=== PATIENT | female | born 1985 | race Caucasian/White ===

== ENCOUNTER 2017-08-06 21:15 | Inpatient (IN) | payer OTHER ==
[2017-08-06] MEDS ORDERED: LIDOCAINE 1% 300 MG/30 ML SDV ONE (21:35)
[2017-08-06] MEDS ORDERED: HYDROCODONE/APAP 5/325 TAB PO PRN (22:22)
[2017-08-06] MEDS ORDERED: HYDROCORTISONE 0.5% CREAM TP PRN (22:22)
[2017-08-06] MEDS ORDERED: DOCUSATE SODIUM 100 MG CAP PO PRN (22:22)
[2017-08-06] MEDS ORDERED: IBUPROFEN 600 MG TAB PO PRN (22:24)
[2017-08-06] MEDS ORDERED: LIDOCAINE 1% 300 MG/30 ML SDV SC PRN (22:24)
[2017-08-06] MEDS ORDERED: MISOPROSTOL 200 MCG TAB PR PRN (22:24)
[2017-08-06] MEDS ORDERED: OXYTOCIN/RINGERS LACTATE 1,000 ML IV PRN (22:24)
[2017-08-06] MEDS ORDERED: LR 1,000 ML IV PRN (22:24)
[2017-08-06] MEDS ORDERED: OLIVE OIL 118 ML BTL MISC PRN (22:24)
[2017-08-06] MEDS ORDERED: EPSOM SALT 454 GM TP PRN (22:24)
[2017-08-06] MEDS ORDERED: TERBUTALINE SULFATE 1 MG/ML VIAL IV PRN (22:24)
--- NOTE | 2017-08-06 22:53 | GHP ---
[f rep st] PREOP HISTORY AND PHYSICAL DATE OF ADMISSION: 08/06/2017 ADMISSION DIAGNOSES: 1. Intrauterine at 39 and 4/7 weeks gestation. 2. Active labor. INDICATIONS: Patient is a 31-year-old 4, para 2-0-1-2, who is 39 and 4/7 weeks gestation who presented in active labor this evening. Patient's estimated date of confinement is 08/13/2017, date d by last menstrual period of 11/06/2016 consistent with 1st trimester ultrasound. Patient received care with [facility] and is primarily seeing the midwives. She began having contr actions last night and then had them randomly throughout the day, but then they began increasing in f requency and intensity, so she arrived to Labor and Delivery. Patient has a history of precipitous d elivery at the emergency room with her second baby, so she came in for evaluation. Upon arrival, pat ient was noted to be completely dilated with a bulging bag of water and rapidly progressed to having a spontaneous vaginal delivery. MEDICAL HISTORY: Negative. MEDICATIONS: vitamins and iron. SURGICAL HISTORY: [place] tooth extraction, ACL repair, D and C. ALLERGIES: No known drug allergies. SOCIAL HISTORY: Patient is . She is a dcib-hb-kxke mom. She denies tobacco, alcohol, or annabelle g use. FAMILY MEDICAL HISTORY: Noncontributory. TECHNICAL SERVICES MANAGER HISTORY: Menarche age 12. Periods every 28 to 30 days, lasting 6 days. She is a 4, para 2-0-1-2. In 11/2010, she had a missed for which she had a D and C. In 07/2012, she lorenzo d a spontaneous vaginal delivery at 40 and 4/7 weeks gestation of an 8 pound 5 ounce female. In 05/11, she had a spontaneous vaginal delivery of a 7 pound 4 ounce male. Labor was precipitous, delive red outside the emergency room. Current has been uncomplicated. She has been having regul ar care. Patient denies any history of any abnormal Pap smears or sexually transmitted dise ases. REVIEW OF SYSTEMS: Ten point review of systems is negative with the exception of the above-mentioned pertinent positives. She stated positive movement. Denied any loss of fluid or vaginal bleed ing. She denied any headaches or changes in vision. PHYSICAL EXAMINATION: VITAL SIGNS: Stable. GENERAL APPEARANCE: Alert and oriented x3. NEURO: Gr ossly intact. PSYCH: Appropriate affect. MUSCULOSKELETAL: Grossly intact. NECK: Mobile and supp le. HEART: Rate is regular regular. LUNGS: Clear to auscultation bilaterally. ABDOMEN: Gravid, nondistended, nontender. EXTREMITIES: Reveal no calf tenderness or edema. On arrival, she was completely dilated with a bulging bag of fluid, and we were not able to Doppler f etal heart tones. Patient's labs: Blood type O positive. Antibody screen negative. Rubel la immune. GBS negative. HBsAg negative. HIV negative. Her 50 g glucose was 78. ASSESSMENT AND PLAN: 31-year-old, 4, para 2-0-1-2, who presented in active labor and had a s pontaneous vaginal delivery rapidly after arrival. /[id number]/MODL
--- NOTE | 2017-08-06 22:54 | OBDEL ---
Info Type: Vaginal Presentation at Delivery: Vertex L&D Analgesia/Anesthesia Type: None GBS+: No - Hospital Course Intrapartum: 08/06/17 22:51 arrived to labor and delivery at 2119. contractions had begun increasing in frequency at 1800. completely dilated with a bulging bag on arrival. rapid delivery Indications for Delivery: Spontaneous Labor Vaginal Delivery - Delivery Provider Delivery Physician/CNM: Ghazal Rowe - Labor and Delivery Onset of Contractions Date: 08/06/17 Onset of Contractions Time: 18:00 Onset of Contractions Type: Spontaneous Rupture of Membranes Date: 08/06/17 Rupture of Membranes Time: 21:24 Rupture of Membranes Type: Spontaneous Amniotic Fluid Color: Clear Dilation Complete Date: 08/06/17 Dilation Complete Time: 21:24 Placenta Delivery Date: 08/06/17 Placenta Delivery Time: 21:33 Total Hours of Labor: 3 Laceration: 2nd Degree Repair: 3-0 Vaginal Sponge Count Correct: Yes Vaginal Needle Count Correct: Yes Vaginal Sweep Performed: No EBL: 100 Delivery Events: None Data CECILIO: 08/13/17 Gestational Age: 42 week(s) and 0 day(s) [place] Delivery Date: 08/06/17 Delivery Time: 21:25 Score (1 Min): 8 Score (5 Min): 9 ICD10 Worksheet Patient Problems: Problems Problem Status Onset Delivery normal Acute Delivery normal Acute
[2017-08-07] MEDS: ACETAMINOPHEN 325 MG TAB PO SCH ×4 (00:46→18:19)
[2017-08-07] MEDS: IBUPROFEN 600 MG TAB PO SCH ×4 (05:02→23:58)
--- NOTE | 2017-08-07 09:44 | OBPP ---
Progress Note Assessment/Plan: Assessment: 31 y/o PPD #1 s/p precipitous Plan: support and routine PPC. D/c home tomorrow. 08/07/17 09:45 Subjective/ Course: 08/07/17 09:40 Pt is doing well this am. She has min cramping controlled with Ibuprofen. She is ambulating and voiding without difficulty and has min lochia. She is working on breast feeding, but baby is sleepy. Objective: Temp Pulse Resp BP Pulse Ox 36.9 C 65 16 110/78 94 08/07/17 08:00 08/07/17 08:00 08/07/17 08:00 08/07/17 08:00 08/07/17 05:06 Uterine Position/Fundal Height: Umbilicus -3 Uterine Tone: Firm Physical Exam - Physical Exam General Appearance: alert, no apparent distress Neck: non-tender, full range of motion, supple Respiratory: chest non-tender, lungs clear, normal breath sounds Cardiac/Chest: regular rate, rhythm Abdomen: normal bowel sounds Extremities: swelling (no), Rm's sign (neg)
[2017-08-08] MEDS: IBUPROFEN 600 MG TAB PO SCH ×2 (05:41→11:51)
[2017-08-08] MEDS: ACETAMINOPHEN 325 MG TAB PO SCH ×3 (06:00→12:07)
[2017-08-08 09:01] VITALS: BP 125/81
--- NOTE | 2017-08-08 12:07 | OBPP ---
Progress Note Assessment/Plan: Assessment: 31 y/o PPD #2 s/p precipitous Plan: support and routine PPC. D/c today. Subjective/ Course: Doing great - ready for home. Objective: Temp Pulse Resp BP Pulse Ox 36.2 C 85 16 125/81 H 98 08/08/17 08:00 08/08/17 08:00 08/08/17 08:00 08/08/17 08:00 08/08/17 08:00 Uterine Position/Fundal Height: At Umbilicus Uterine Tone: Firm
--- NOTE | 2017-08-08 12:08 | OBGCSDC ---
General Delivery Information - General Info : 4 Para: 2 Abortions: 1 Type: Vaginal L&D Analgesia/Anesthesia Type: None Admission Date: 08/06/17 - Hospital Course Intrapartum: 08/06/17 22:51 arrived to labor and delivery at 2119. contractions had begun increasing in frequency at 1800. completely dilated with a bulging bag on arrival. rapid delivery : 08/07/17 09:40 Pt is doing well this am. She has min cramping controlled with Ibuprofen. She is ambulating and voiding without difficulty and has min lochia. She is working on breast feeding, but baby is sleepy. Vaginal - Delivery Provider Delivery Physician/CNM: Ghazal Rowe - Diagnosis Labor: Spontaneous Rupture of Membranes Type: Spontaneous Amniotic Fluid Color: Clear Laceration: 2nd Degree Repair: 3-0 Delivery Events: None - Delivery EBL: 100 Data CECILIO: 08/13/17 Gestational Age: 40 week(s) and 3 day(s) [place] Delivery Date: 08/06/17 Delivery Time: 21:25 Sex of Infant: Male Weight (gm): 3224 g Score (1 Min): 8 Score (5 Min): 9 Discharge Information - Discharge Information Condition: Good Instruction/Follow Up: See Instruction Sheet, Four Weeks, Six Weeks
== END 2017-08-08 12:50 | disposition home or self-care (01) | DRG 775 ==
LOC: FLD 21:15 → OBSVTOIN 21:15 → FOB 08-07 00:38
PROVIDERS: ADMIT Obstetrics & Gynecology; ATTEND Obstetrics & Gynecology
DX: O70.1 Second degree perineal laceration during delivery (principal); Z3A.39 39 weeks gestation of pregnancy; Z37.0 Single live birth